=== PATIENT | female | born 1945 | race Caucasian/White ===

== ENCOUNTER 2016-07-16 18:32 | Emergency (ER) | payer MEDICARE ==
[~2016-07-16] VITALS: Ht 162.6 cm; Wt 70.0 kg
[2016-07-16 18:40] VITALS: BP 199/95; PULSE 97; RESP 20; TEMP 98.3; O2SAT 97
[2016-07-16 18:49] VITALS: BP 199/95; PULSE 91; RESP 20; O2SAT 97
[2016-07-16] MEDS ORDERED: SODIUM CHLORIDE 0.9% FLUSH 10 ML FLUSH IVF PRN (19:30)
[2016-07-16 19:33] VITALS: BP 173/93; PULSE 88; RESP 18; O2SAT 98
[2016-07-16 19:35] VITALS: O2SAT 97
[2016-07-16 19:37] LABS: AUTOMATED NEUTROPHIL # 4.3 TH/MM3 (1.8-7.7); BASOPHIL # 0.1 TH/MM3 (0-0.2); BASOPHIL % 0.8 % (0.0-2.0); EOSINOPHIL # 0.2 TH/MM3 (0-0.4); EOSINOPHIL % 2.9 % (0.0-4.0); HEMATOCRIT 41.9 % (35.0-46.0); HEMO FLAGS DIFF FINAL; LYMPH % 27.4 % (9.0-44.0); LYMPHOCYTE # 1.9 TH/MM3 (1.0-4.8); MEAN CELL VOLUME 91.8 FL (80.0-100.0); MEAN CORPUSCULAR HEMOGLOBIN 29.9 PG (27.0-34.0); MEAN CORPUSCULAR HGB CONC 32.6 % (32.0-36.0); MONO % 7.1 % (0.0-8.0); NEUT % 61.8 % (16.0-70.0); PLATELET COUNT 242 TH/MM3 (150-450); RED BLOOD COUNT 4.56 MIL/MM3 (4.00-5.30); RED CELL DISTRIBUTION WIDTH 13.5 % (11.6-17.2)
--- NOTE | 2016-07-16 19:52 | PD ---
HPI Chief Complaint: Cardiac Complaint Time Seen by Provider: 19:24 Travel History International Travel<30 days: No Contact w/Intl Traveler<30days: No Traveled to known affect area: No History of Present Illness HPI 70-year-old female arrives to the ER by EMS. minutes after eating the patient developed sudden onset of racing heart. She reports chest heaviness and minimal shortness of breath accompanying the event. She visited her neighbor,a nurse, who advised EMS activation. EMS identified as CTs and treated the patient with adenosine. Symptoms started. She believes her father may have had a history of SVT. She personally hasn't had no similar prior events carries no diagnosis of asthma. She reports feeling very stressed lately. She denies any recent illness. She took an [id number] gummy vitamin for stress which contained JAVON and L-Theonine. The patient's sensation in her left thigh yesterday and was worried about blood clot. She has no further history of DVTs. [facility] Past Medical History Medical History: Denies Significant Hx Tetanus Vaccination: > 5 Years Influenza Vaccination: No Past Surgical History Section: Yes (X2) Social History Alcohol Use: No (OCCAS) Tobacco Use: No Substance Use: No Allergies-Medications (Allergen,Severity, Reaction): Coded Allergies: Penicillin (Verified Allergy, Intermediate, HIVES, 07/16/16) Sulfa (Verified Allergy, Intermediate, HIVES, 07/16/16) Reported Meds & Prescriptions Reported Meds & Active Scripts Active No Active Prescriptions or Reported Medications Review of Systems Except as stated in HPI: all other systems reviewed are Neg General / Constitutional: No: Fever Cardiovascular: Positive: Chest Pain or Discomfort, Palpitations, Tachycardia Respiratory: Positive: Shortness of Breath Physical Exam Narrative GENERAL: 70-year-old female pleasant no acute distress SKIN: Warm and dry. HEAD: Atraumatic. Normocephalic. EYES: Pupils equal and round. No scleral icterus. No injection or drainage. ENT: No nasal bleeding or discharge. Mucous membranes pink and moist. NECK: Trachea midline. No JVD. CARDIOVASCULAR: Regular rate and rhythm. No murmur appreciated. RESPIRATORY: No accessory muscle use. Clear to auscultation. Breath sounds equal bilaterally. GASTROINTESTINAL: Abdomen soft, non-tender, nondistended. Hepatic and splenic margins not palpable. MUSCULOSKELETAL: No obvious deformities. No clubbing. No cyanosis. No evidence DVT. NEUROLOGICAL: Awake and alert. No obvious cranial nerve deficits. Motor grossly within normal limits. Normal speech. PSYCHIATRIC: Appropriate mood and affect; insight and judgment normal. Data Data Last Documented VS Vital Signs Date Time Temp Pulse Resp B/P Pulse Ox O2 Delivery O2 Flow Rate FiO2 07/16/16 20:50 77 18 174/83 97 Nasal Cannula 2 07/16/16 18:40 98.3 Vital signs noted Orders Electrocardiogram (07/16/16 ) Basic Metabolic Panel (Bmp) (07/16/16 19:24) Ckmb (Isoenzyme) Profile (07/16/16 19:24) Complete Blood Count With Diff (07/16/16 19:24) D-Dimer (07/16/16 19:24) Magnesium (Mg) (07/16/16 19:24) Prothrombin Time / Inr (Pt) (07/16/16 19:24) Act Partial Throm Time (Ptt) (07/16/16 19:24) Troponin I (07/16/16 19:24) Chest, Single Ap (07/16/16 19:24) Ecg Monitoring (07/16/16 19:24) Bilateral Bp Monitoring (07/16/16 19:24) Iv Access Insert/Monitor (07/16/16 19:24) Oximetry (07/16/16 19:24) Oxygen Administration (07/16/16 19:24) Sodium Chloride 0.9% Flush (Ns Flush) (07/16/16 19:30) Lorazepam (Ativan) (07/16/16 22:45) Labs Laboratory Tests Test 07/16/16 19:30 White Blood Count 7.0 TH/MM3 Red Blood Count 4.56 MIL/MM3 Hemoglobin 13.6 GM/DL Hematocrit 41.9 % Mean Corpuscular Volume 91.8 FL Mean Corpuscular Hemoglobin 29.9 PG Mean Corpuscular Hemoglobin 32.6 % Concent Red Cell Distribution Width 13.5 % Platelet Count 242 TH/MM3 Mean Platelet Volume 9.1 FL Neutrophils (%) (Auto) 61.8 % Lymphocytes (%) (Auto) 27.4 % Monocytes (%) (Auto) 7.1 % Eosinophils (%) (Auto) 2.9 % Basophils (%) (Auto) 0.8 % Neutrophils # (Auto) 4.3 TH/MM3 Lymphocytes # (Auto) 1.9 TH/MM3 Monocytes # (Auto) 0.5 TH/MM3 Eosinophils # (Auto) 0.2 TH/MM3 Basophils # (Auto) 0.1 TH/MM3 CBC Comment DIFF FINAL Differential Comment Prothrombin Time 10.6 SEC Prothromb Time International 1.0 RATIO Ratio Activated Partial 28.1 SEC Thromboplast Time D-Dimer Quantitative (PE/DVT) 0.23 MG/L FEU Sodium Level 141 MEQ/L Potassium Level 3.4 MEQ/L Chloride Level 104 MEQ/L Carbon Dioxide Level 28.8 MEQ/L Anion Gap 8 MEQ/L Blood Urea Nitrogen 10 MG/DL Creatinine 0.98 MG/DL Estimat Glomerular Filtration 56 ML/MIN Rate Random Glucose 121 MG/DL Calcium Level 10.1 MG/DL Magnesium Level 2.1 MG/DL Total Creatine Kinase 36 U/L Troponin I LESS THAN 0.02 NG/ML MDM Medical Decision Making Medical Screen Exam Complete: Yes Emergency Medical Condition: Yes Differential Diagnosis NSTEMI, unstable angina, coronary vasospasm, PE, PTX, aortic dissection, pericarditis, myocarditis, endocarditis, PNA, esophageal disease, aneurysm, musculoskeletal etiologies, anxiety, cocaine/sympathomimetic abuse Narrative Course CBC & BMP Diagram 07/16/16 19:30 Troponin < 0.02 EKG reveals a heart rate of 57 bpm normal axis intervals no ischemic injury pattern Last 24 hours Impressions Chest X-Ray 07/16/161923 Signed Impressions: Service Date/Time: Saturday, July 16, 2016 19:50 - CONCLUSION: 1. Mild basilar density most characteristic of atelectasis. Trev Cortes MD The patient has remained asymptomatic throughout ER course. Upon reassessment she states she drank coffee before onset of SVT event. She also states she has a history of hypothyroidism. We discussed the follow-up plan which includes following up with cardiology. Patient states she does not want to stay for chest pain center evaluation. The d-dimer is undetectable and PE/DVT considered quite unlikely per pretest probability alone. Patient's ready for discharge. Diagnosis Primary Impression: Chest pain Qualified Code: R07.9 - Chest pain, unspecified type Additional Impressions: SVT (supraventricular tachycardia) Atelectasis Hypokalemia HTN (hypertension) Referrals: Moni Spence MD 2 days Primary Care Physician Additional Instructions: You have a choice when it comes to health care, and we are glad that you chose [facility]. Hopefully, we have met your expectations on today's visit. You are welcome to return to [facility] at any time, as we are committed to meeting the health care needs of our community. Please follow up with cardiology as we discussed. Please also note your blood pressure was quite high today. It would be here because interest to follow up with cardiology as discussed into included discussion about high blood pressure as well as to establish a primary care provider follow up as well. Med/Other Pt SpecificInfo: No Change to Meds Scripts No Active Prescriptions or Reported Meds Disposition: DISCHARGE HOME Condition: Jose Briscoe MD Jul 16, 2016 19:52
[2016-07-16 19:57] LABS: ANION GAP 8 MEQ/L (5-15); BICARBONATE 28.8 MEQ/L (21.0-32.0); BLOOD UREA NITROGEN 10 MG/DL (7-18); CHLORIDE 104 MEQ/L (98-107); GLOMERULAR FILTRATION RATE 56 ML/MIN (>89); MAGNESIUM 2.1 MG/DL (1.5-2.5); POTASSIUM 3.4 MEQ/L (3.5-5.1); SODIUM (NA) 141 MEQ/L (136-145)
[2016-07-16 20:00] LABS: APTT (PATIENT) 28.1 SEC (24.3-30.1); PROTHROMBIN TIME - PATIENT 10.6 SEC (9.8-11.6)
[2016-07-16 20:05] LABS: CREATINE KINASE 36 U/L (26-192)
--- NOTE | 2016-07-16 20:25 | RADRPT ---
EXAM DATE/TIME: 07/16/2016 19:50 [facility] COMPARISON: No previous studies available for comparison. INDICATIONS : Chest pain and tightness. MEDICAL HISTORY : None. SURGICAL HISTORY : None. ENCOUNTER: Initial ACUITY: 1 day PAIN SCORE: 5/10 LOCATION: Bilateral chest FINDINGS: A single view of the chest demonstrates mild basilar density most characteristic of atelectasis. No f ocal consolidation. Heart size upper limits normal. No effusion or pneumothorax. CONCLUSION: 1. Mild basilar density most characteristic of atelectasis. Trev Cortes MD on July 16, 2016 at 20:22 Board Certified Radiologist. This report was verified electronically.
[2016-07-16 20:50] VITALS: BP 174/83; PULSE 77; RESP 18; O2SAT 97
[2016-07-16] MEDS ORDERED: LORazepam 0.5 MG TAB PO ONE (22:45)
--- NOTE | 2016-07-17 15:06 | EKG ---
Date Performed: 07/16/2016 Time Performed: 18:49:07 PTAGE: 70 years EKG: Sinus rhythm Since previous tracing, no significant change noted NORMAL ECG PREVIOUS TRACING : 02/21/1999 12.12 DOCTOR: Danilo Valenzuela Interpretating Date/Time 07/17/2016 15:06:00
== END 2016-07-16 23:00 | disposition home or self-care (01) ==
LOC: NEPE 18:32
DX: R07.9 Chest pain, unspecified (principal); I47.1 Supraventricular tachycardia; J98.11 Atelectasis; E87.6 Hypokalemia; E03.9 Hypothyroidism, unspecified; R06.02 Shortness of breath; R03.0 Elevated blood-pressure reading, without diagnosis of hypertension
CPT/HCPCS: 71010; 80048; 82550; 83735; 84484; 85025; 85379; 85610; 85730; 93005